=== PATIENT | male | born 1985 | race Two or more races ===

== ENCOUNTER → 2024-08-10 | Outpatient (CLI) | payer OTHER, SELFPAY ==
--- NOTE | 2024-08-10 09:24 | XR_ITS ---
Examination: Knee, left , 3 views Technique: Knee AP, lateral, oblique 3 views Date and time of exam: August 10, 2024 0946 hours INDICATIONS: Left knee pain beginning 3 months ago FINDINGS: Minimal narrowing medial joint space No fracture or dislocation Minimal osteoarthritis patellofemoral joint IMPRESSION: Minimal osteoarthritis
--- NOTE | 2024-08-10 09:24 | XR_ITS ---
Examination: Lumbar spine, 5 views Technique: Lumbar spine AP, lateral, coned lateral lower lumbar spine, bilateral obliques 5 views Exam date and time: August 10, 2024 0946 hours INDICATIONS: Lower back pain beginning 3 months ago. FINDINGS: Adequate alignment lumbar vertebral bodies No lumbar fracture Advanced disc during L5-S1 No spondylolisthesis IMPRESSION: Advanced degenerative disc disease L5-S1, progressed compared to the October 14, 2012 exam
--- NOTE | 2024-08-10 09:24 | XR_ITS ---
Examination: Shoulder,right, 3 views Technique: Shoulder AP internal rotation, AP external rotation, Y view shoulder, 3 views Exam date and time :August 10, 2024 0946 hours INDICATIONS: Right shoulder pain beginning 3 months ago. FINDINGS: Moderate narrowing glenohumeral joint No shoulder fracture or dislocation No calcific tendinitis IMPRESSION: Moderate narrowing glenohumeral joint
== END | disposition home or self-care (01) ==
LOC: CDIM 09:11
PROVIDERS: PCP Physician Assistant; Referring Provider Physician Assistant; Visit Provider Physician Assistant
DX: M17.12 Unilateral primary osteoarthritis, left knee (principal); M51.370 Other intervertebral disc degeneration, lumbosacral region with discogenic back pain only; M25.811 Other specified joint disorders, right shoulder
CPT/HCPCS: 72110; 73030; 73562

== ENCOUNTER 2024-11-27 20:00 | Inpatient (IN) | payer MEDICAID, SELFPAY ==
[2024-11-27 20:02] VITALS: BMI 30.8
[2024-11-27 20:07] VITALS: BP 112/77; PULSE 110; RESP 18; TEMP 36.4; O2SAT 96
--- NOTE | 2024-11-27 20:38 | EDNOTE_ITS ---
ED Weakness RME/HPI General Chief complaint: General Adult/Misc Complain Stated complaint: MUSCLE CRAMPING Time Seen by Provider: 11/27/24 20:16 Arrival date/time: 11/27/24 20:00 RME / HPI RME / HPI Narrative: Refer to [facility]. Related Data Allergies Allergy/AdvReac Type Severity Reaction Status Date / Time NKA* Allergy Uncoded 11/27/24 20:07 Review of Systems Review of Systems Systems Reviewed: All systems reviewed, normal except as documented ED Exam Narrative Physical exam: Refer to [facility]. Course Quality Measures none Orders Category Date Time Status Admit to Inpatient Status Routine Admission 11/28/24 01:25 Active Patient Condition Routine Admission 11/28/24 01:24 Ordered COVID-19 Screening Questionnaire NOW Care 11/28/24 01:21 Active Decision to Admit X1 Care 11/28/24 01:21 Completed EKG (ED ONLY) *Do not use* NOW Care 11/27/24 20:42 Completed Miscellaneous Nursing Order NOW Care 11/28/24 01:24 Active Notify provider NEEDED Care 11/28/24 01:24 Active Saline [Insert IV] NOW Care 11/27/24 20:37 Active Diet Regular Diet 11/28/24 Breakfast Active EKG (ED Only) Stat Exams 11/27/24 20:42 Draft Alcohol, Blood Medical Stat Lab 11/27/24 21:45 Completed Amylase Stat Lab 11/27/24 21:45 Completed BNP [B-Type Natriuretic Peptide] Stat Lab 11/27/24 21:45 Completed Basic Metabolic Panel Q4HR Lab 11/28/24 01:40 Completed Basic Metabolic Panel Q4HR Lab 11/29/24 01:30 Ordered Basic Metabolic Panel Q4HR Lab 11/30/24 01:30 Ordered Basic Metabolic Panel Q4HR Lab 12/01/24 01:30 Ordered Basic Metabolic Panel Q4HR Lab 12/02/24 01:30 Ordered Basic Metabolic Panel Q4HR Lab 12/03/24 01:30 Ordered Basic Metabolic Panel Q4HR Lab 12/04/24 01:30 Ordered Basic Metabolic Panel Q4HR Lab 12/05/24 01:30 Ordered Basic Metabolic Panel Q4HR Lab 12/06/24 01:30 Ordered Basic Metabolic Panel Q4HR Lab 12/07/24 01:30 Ordered Beta Hydroxybutyrate Stat Lab 11/27/24 21:45 Completed Bilirubin,Direct Stat Lab 11/27/24 21:45 Completed CBC AM DRAW Lab 11/28/24 05:00 Ordered CBC AM DRAW Lab 11/29/24 05:00 Ordered CBC AM DRAW Lab 11/30/24 05:00 Ordered CBC Stat Lab 11/27/24 21:45 Completed CK [Creatine Kinase] Q4HR Lab 11/28/24 01:40 Completed CK [Creatine Kinase] Q4HR Lab 11/29/24 01:30 Ordered CK [Creatine Kinase] Q4HR Lab 11/30/24 01:30 Ordered CK [Creatine Kinase] Q4HR Lab 12/01/24 01:30 Ordered CK [Creatine Kinase] Q4HR Lab 12/02/24 01:30 Ordered CK [Creatine Kinase] Q4HR Lab 12/03/24 01:30 Ordered CK [Creatine Kinase] Q4HR Lab 12/04/24 01:30 Ordered CK [Creatine Kinase] Q4HR Lab 12/05/24 01:30 Ordered CK [Creatine Kinase] Q4HR Lab 12/06/24 01:30 Ordered CK [Creatine Kinase] Q4HR Lab 12/07/24 01:30 Ordered CK [Creatine Kinase] Stat Lab 11/27/24 21:45 Completed CMP [Comprehensive Metabolic Panel] Stat Lab 11/27/24 21:45 Completed CRP [C-Reactive Protein] Stat Lab 11/27/24 21:45 Completed Drug Screen,Urine Stat Lab 11/28/24 01:53 Completed ESR [Sed Rate (ESR)] Stat Lab 11/27/24 21:45 Completed Free T4 (Free Thyroxine) Stat Lab 11/27/24 21:45 Completed LDH (Lactate Dehydrogenase) Stat Lab 11/27/24 21:45 Completed Lactate (Lactic Acid) Stat Lab 11/27/24 23:56 Completed Lipase Stat Lab 11/27/24 21:45 Completed Lipid Panel AM DRAW Lab 11/28/24 05:00 Ordered Magnesium AM DRAW Lab 11/28/24 05:00 Ordered Magnesium AM DRAW Lab 11/29/24 05:00 Ordered Magnesium AM DRAW Lab 11/30/24 05:00 Ordered Magnesium Stat Lab 11/27/24 21:45 Completed PT [Prothrombin Time with INR] Stat Lab 11/27/24 21:45 Completed PTT [Partial Thromboplastin Time] Stat Lab 11/27/24 21:45 Completed Phosphorous Q4H Lab 11/28/24 01:40 Completed Phosphorous Q4H Lab 11/28/24 05:00 Ordered Phosphorous Q4H Lab 11/28/24 09:30 Ordered Phosphorous Q4H Lab 11/28/24 13:30 Ordered Phosphorous Q4H Lab 11/28/24 17:30 Ordered Phosphorous Q4H Lab 11/28/24 21:30 Ordered Phosphorous Q4H Lab 11/29/24 01:30 Ordered Phosphorous Q4H Lab 11/29/24 05:30 Ordered Phosphorous Q4H Lab 11/29/24 09:30 Ordered Phosphorous Q4H Lab 11/29/24 13:30 Ordered Phosphorous Stat Lab 11/27/24 21:45 Completed Procalcitonin Stat Lab 11/27/24 21:45 Completed TSH [Thyroid Stimulating Hormone] Stat Lab 11/27/24 21:45 Completed Troponin I Stat Lab 11/27/24 21:45 Completed UA, C/S IF [Urinalysis, C/S if Indicated] Stat Lab 11/28/24 01:53 Completed Acetaminophen Tab [Tylenol Tab] Med 11/28/24 01:24 Discontinued 650 mg PO Q6H PRN Acetaminophen Tab [Tylenol Tab] Med 11/28/24 01:51 Discontinued 650 mg PO Q6H PRN Diazepam Inj [Valium Inj] Med 11/27/24 22:04 Discontinued 7.5 mg IVP X1 ONE HYDROcodone*/APAP 5/325 [[place] 5/325] Med 11/28/24 01:24 Discontinued 1 tab PO Q4HR PRN Heparin Inj Med 11/28/24 09:00 Active 5,000 unit SC Q12HR Ketorolac Inj [Toradol Inj] Med 11/27/24 20:38 Discontinued 30 mg IVP X1 ONE MethylPREDNISolone.* [SoluMEDROL Inj] Med 11/27/24 20:40 Discontinued 125 mg IVP X1 ONE Morphine Inj Med 11/27/24 20:39 Discontinued 6 mg IVP X1 ONE Ondansetron Inj [Zofran Inj] Med 11/28/24 01:24 Active 4 mg IVP Q6H PRN Ondansetron Inj [Zofran Inj] Med 11/27/24 20:40 Discontinued 4 mg IVP X1 ONE Ringers Lactated 1000 ml [Lactated Ringers] 1,000 ml Med 11/28/24 01:30 Active IV 200 mls/hr Sodium Chloride 0.9% 1000 ml [Ns] 1,000 ml Med 11/27/24 20:38 Discontinued IV 999 mls/hr Sodium Chloride 0.9% 1000 ml [Ns] 1,000 ml Med 11/27/24 20:39 Discontinued IV 999 mls/hr Sodium Chloride 0.9% 1000 ml [Ns] 1,000 ml Med 11/27/24 20:40 Discontinued IV 999 mls/hr Code Status Routine Oth 11/28/24 01:24 Ordered Vital Signs Vital signs: Vital Signs Temperature 97.6 F 11/27/24 20:07 Pulse Rate 110 H 11/27/24 20:07 Respiratory Rate 18 11/27/24 20:07 Blood Pressure 112/77 11/27/24 20:07 Pulse Oximetry (%) 96 11/27/24 20:07 Oxygen Delivery Method Room Air 11/27/24 20:07 Weakness MDM Narrative MDM Narrative:: Scribe Attestation: I, Radha Aden, am scribing for and in the presence of Dr. Haley. Provider Notation: Although this document has been carefully reviewed, there may still be some phonetic and other typographical errors. These errors are purely grammatical due to imperfections in the software program and should not be construed in any way to compromise the substance of the patient's medical care during this visit. This section includes all my notes and documentations, including HPI, PE, and ED course. 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 No other complaints. ROS: All negative except as documented in HPI. Physical Exam: General: Alert and oriented. Diffuse cramping noted. Eyes: Conjunctivae and lids clear. ENT: No nasal congestion. Neck: Supple. Heart: RRR. Lungs: No respiratory distress. Good air movement. No rhonchi, wheezing, rales. Abdomen: Soft and nontender. Legs: No clubbing, cyanosis, edema. Skin: Warm and dry. Neuro: Alert and oriented X 3. Cranial Nerves II-XII grossly intact. No peripheral motor deficits. I reviewed all diagnostic test results: My interpretation of the EKG is: Sinus rhythm (92 bpm) with nonspecific ST-T changes. Blood tests and urine tests remarkable for Cr 2.9 and CK 759. At this point, diagnoses include: BHAVIN (acute kidney injury), Rhabdomyolysis Treatment here included: 3 L IV fluid, Zofran 4 mg, Morphine 4 mg, SoluMedrol 125 mg, Toradol 30 mg, and Valium 7.5 mg. He felt much better. I discussed the case with our hospitalist. About the presentation and exam and diagnostics and treatments here. And need of further care in the hospital. Will accept the patient. Jose Haley MD Patient data External records reviewed:: [facility] previous records (Reviewed prior ED records from 08/07/21. Patient was seen for Closed left scapular fracture.) Clinical information provided by:: patient Social determinants that could affect healthcare access:: none Patient has the following chronic illnesses:: None reported. How is presenting disease/condition affected by chronic disease/condition?: no chronic disease Evaluation data The following diagnostics were reviewed and interpreted by me:: lab results and EKG tracing(s) (My interpretation of the EKG is: Sinus rhythm (92 bpm) with nonspecific ST-T changes. Jose Haley MD) Lab and/or radiology exams considered but not ordered:: None Interpretation Summary: I reviewed all diagnostic test results: My interpretation of the EKG is: Sinus rhythm (92 bpm) with nonspecific ST-T changes. Blood tests and urine tests remarkable for Cr 2.9 and CK 759. Medications / Prescriptions Medications or Prescriptions considered but not ordered:: None Medication administrations:: Medication Administration History Acetaminophen (Acetaminophen 325 Mg Tablet) 650 mg PO Q6H PRN; Protocol PRN Reason: Fever >100.4 or pain 1-10 Stop: 12/28/24 01:23 Hydrocodone Bitart/Acetaminophen (Hydrocodone/Apap 5/325 Tablet) 1 tab PO Q4HR PRN; Protocol PRN Reason: PAIN SCALE 4-10(Mod-Sev Stop: 12/03/24 01:23 Heparin Sodium (Porcine) (Heparin Sod Inj 5000 Unit/Ml Vial) 5,000 unit SC Q12HR JOSSELINE Stop: 12/12/24 08:59 Lactated Ringer's (Lactated Ringers) 1,000 mls @ 200 mls/hr IV .Q5H JOSSELINE Stop: 11/30/24 01:29 Last Admin: 11/28/24 01:47 Dose: 200 mls/hr Documented By: BD Ondansetron HCl (Ondansetron Inj 2 Mg/Ml Inj 2 Ml) 4 mg IVP Q6H PRN; Protocol PRN Reason: NAUSEA OR VOMITING Stop: 12/28/24 01:23 Discontinued Medications Acetaminophen (Acetaminophen 325 Mg Tablet) 650 mg PO Q6H PRN PRN Reason: Fever >100.4 or pain Stop: 12/28/24 01:23 Acetaminophen (Acetaminophen 325 Mg Tablet) 650 mg PO Q6H PRN PRN Reason: Fever >100.4 or pain 1-3 Stop: 12/28/24 01:23 Hydrocodone Bitart/Acetaminophen (Hydrocodone/Apap 5/325 Tablet) 1 tab PO Q4HR PRN PRN Reason: PAIN SCALE 4-10(Mod-Sev Stop: 12/03/24 01:23 Diazepam (Diazepam Inj 5 Mg/Ml Vial 2 Ml) 7.5 mg IVP X1 ONE Stop: 11/27/24 22:05 Last Admin: 11/27/24 22:24 Dose: 7.5 mg Documented By: EF Sodium Chloride (Ns) 1,000 mls @ 999 mls/hr IV .Q1H1M ONE Stop: 11/27/24 21:38 Last Infusion: 11/27/24 23:25 Dose: Infused Documented By: Admin: 11/27/24 21:29 Dose: 999 mls/hr Documented By: BD Sodium Chloride (Ns) 1,000 mls @ 999 mls/hr IV .Q1H1M ONE Stop: 11/27/24 21:39 Last Infusion: 11/27/24 23:25 Dose: Infused Documented By: Admin: 11/27/24 21:50 Dose: 999 mls/hr Documented By: EF Sodium Chloride (Ns) 1,000 mls @ 999 mls/hr IV .Q1H1M ONE Stop: 11/27/24 21:40 Last Infusion: 11/27/24 23:25 Dose: Infused Documented By: Admin: 11/27/24 21:30 Dose: 999 mls/hr Documented By: BD Ketorolac Tromethamine (Ketorolac Inj 30 Mg/Ml Vial) 30 mg IVP X1 ONE Stop: 11/27/24 20:39 Last Admin: 11/27/24 21:28 Dose: 30 mg Documented By: BD Methylprednisolone Sodium Succinate (Methylprednisolone Sod Succ 62.5 Mg/Ml 2ml Vial) 125 mg IVP X1 ONE Stop: 11/27/24 20:41 Last Admin: 11/27/24 21:28 Dose: 125 mg Documented By: BD Morphine Sulfate (Morphine Sulf Inj 10 Mg/Ml Vial) 6 mg IVP X1 ONE Stop: 11/27/24 20:40 Last Admin: 11/27/24 21:29 Dose: 6 mg Documented By: BD Ondansetron HCl (Ondansetron Inj 2 Mg/Ml Inj 2 Ml) 4 mg IVP X1 ONE; Protocol Stop: 11/27/24 20:41 Last Admin: 11/27/24 21:28 Dose: 4 mg Documented By: BD 3 L IV fluid, Zofran 4 mg, Morphine 4 mg, SoluMedrol 125 mg, Toradol 30 mg, and Valium 7.5 mg. Consultations Consultation(s) initiated? (list below): Yes Consultation #1 (Physician, Specialty, Details): I discussed the case with our hospitalist. About the presentation and exam and diagnostics and treatments here. And need of further care in the hospital. Will accept the patient. Diagnosis Weakness Differential Diagnosis: acute myocardial infarction, anemia, hypoglycemia, hypothyroidism, rhabdomyolysis, sepsis and dehydration Most likely diagnosis given after review of the tests above:: BHAVIN (acute kidney injury), Rhabdomyolysis Admission Indicated Admission indicated?: indicated Explain why admission is indicated or not indicated:: BHAVIN (acute kidney injury), Rhabdomyolysis Admission Request Was there a request for admission?: Yes Admission Attestation Admission request attestation: Discussed case with Hospitalist service regarding admission. Discussed patients ED course, exam findings, labs, and radiology results. The Hospitalist [agrees] to accept the patient for admission. Disposition Plan Disposition Plan: Admit Discharge Plan Plan Patient Disposition: Admit Acute Care w/in Hospital Problem List Clinical Impression: BHAVIN (acute kidney injury), Rhabdomyolysis
--- NOTE | 2024-11-27 20:42 | EKG_ITS ---
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
[2024-11-27] MEDS: ONDANSETRON INJ 2 MG/ML INJ 2 ML 4 MG IVP (21:28)
[2024-11-27] MEDS: MethylPREDNISolone SOD SUCC 62.5 MG/ML 2ML VIAL 125 MG IVP (21:28)
[2024-11-27] MEDS: KETOROLAC INJ 30 MG/ML VIAL IVP (21:28)
[2024-11-27] MEDS: MORPHINE SULF INJ 10 MG/ML VIAL 6 MG IVP (21:29)
[2024-11-27] MEDS: SODIUM CHLORIDE 0.9% 1000 ML 1,000 ML 999 ML IV ×3 (21:29→21:50)
[2024-11-27 21:58] LABS: Beta Hydroxybutyrate 0.6 mmol/L (<0.6); Sed Rate (ESR) 18 mm/hr (0-15)
[2024-11-27 21:59] LABS: Basophils # (Auto) 0.1 Thou/mm3 (0.0-0.2); Basophils % (Auto) 1 % (0-2.5); Eosinophils # (Auto) 0.0 Thou/mm3 (0.0-0.5); Eosinophils % (Auto) 0 % (0-10); Hematocrit 47.9 % (41.0-53.0); Hemoglobin 16.8 g/dL (13.5-16.0); Immature Granulocytes Auto 0.14 Thou/mm3 (0.00-0.00); Lymphocytes # (Auto) 1.4 Thou/mm3 (1.0-4.8); Lymphocytes % (Auto) 10 % (10-50); Mean Corpuscular HGB Conc 35.1 g/dl (31.0-37.0); Mean Corpuscular Hemoglobin 30.9 pg (25.0-35.0); Mean Corpuscular Volume 88 fL (80-100); Monocytes # (Auto) 0.6 Thou/mm3 (0.0-0.8); Monocytes % (Auto) 4 % (0-12); Neutrophils # (Auto) 12.4 Thou/mm3 (1.8-7.7); Neutrophils % (Auto) 85 % (37-80); Nucleated Red Blood Cell # 0.00 Thou/mm3 (0.00-0.00); Nucleated Red Blood Cell % 0 /100 WBC (0); Platelet Count 297 Thou/mm3 (140-440); RDW Standard Deviation 39.6 fL (35.1-43.9); Red Blood Count 5.43 Miln/mm3 (4.50-5.90); White Blood Count 14.6 Thou/mm3 (3.8-10.6)
[2024-11-27] MEDS: DIAZEPAM INJ 5 MG/ML VIAL 2 ML 7.5 MG IVP (22:24)
[2024-11-27 22:40] LABS: B-Type Natriuretic Peptide < 20 pg/mL (0-100)
[2024-11-27 23:48] LABS: INR 1.1 (0.9-1.3); Partial Thromboplastin Time 26.0 Seconds (22.0-36.0); Prothrombin Time 11.9 Seconds (9.0-12.2)
[2024-11-27 23:49] LABS: Alanine Aminotransferase 82 U/L (10-49); Albumin, Serum 5.1 gm/dL (3.5-5.0); Albumin/Globulin Ratio 1.5 (1.2-2.2); Alkaline Phosphatase 81 U/L (46-116); Aspartate Amino Transferase 71 U/L (0-34); BUN/Creatinine Ratio 5 Ratio (12-20); Bilirubin,Direct 0.2 mg/dL (0.0-0.3); Bilirubin,Total 0.8 mg/dL (0.3-1.2); Blood Urea Nitrogen 15 mg/dL (9-23); Calcium 10.7 mg/dL (8.3-10.6); Calcium (Corrected) 10.7 mg/dL (8.5-10.1); Carbon Dioxide 17.9 mMol/L (20.0-31.0); Creatine Kinase 759 U/L (34-171); Creatinine (Component) 2.9 mg/dL (0.6-1.3); Estimated Creatinine Clearance 44.0 mL/min (>60); Free T4 (Free Thyroxine) 1.57 ng/dL (0.89-1.76); Globulin 3.3 gm/dL (2.3-3.5); Glucose 131 mg/dL (74-106); Lipase 50 U/L (12-53); Magnesium 2.1 mg/dL (1.6-2.6); Procalcitonin 0.17 ng/ml (0.0-0.49); Thyroid Stimulating Hormone 7.76 uIU/mL (0.55-4.78); Total Protein 8.4 gm/dL (5.7-8.2); Troponin I < 0.020 ng/mL (0.0-0.045); eGFR 27 See Note
[2024-11-28] VITALS (7 sets, daily range): BP systolic 137–149; BP diastolic 72–89; PULSE 56–68; RESP 12–23; TEMP 35.6–36.3; O2SAT 95–98; BMI 30.7
[2024-11-28 00:10] LABS: Lactate (Lactic Acid) 1.3 mMol/L (0.4-2.0)
[2024-11-28 00:57] LABS: Amylase 63 U/L (30-118); Anion Gap 16 (7-16); C-Reactive Protein < 0.5 mg/dL (0.0-0.9); Chloride 101 mMol/L (98-107); LDH (Lactate Dehydrogenase) 282 U/L (120-246); Osmolality,Calculated 272 (275-295); Phosphorous 2.4 mg/dL (2.4-5.1); Potassium 4.6 mMol/L (3.4-5.1); Sodium 135 mMol/L (136-145)
[2024-11-28 01:06] LABS: Alcohol, Blood Medical < 3.0 mg/dL (0-10.0)
[2024-11-28] MEDS: RINGERS LACTATED 1000 ML 1,000 ML 200 ML IV ×3 (01:47→11:15)
--- NOTE | 2024-11-28 02:03 | PD.RESPRO ---
Documentation for date of: 11/28/24 Subjective Subjective Interval history: 39 y/o M with PMHx significant for rhabdomyolysis 1 week ago treated at [facility] presents to ED with chief complaint of diffuse muscle cramping. Patient is an otherwise healthy middle-aged man who is fairly active. 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 Patient noted significant swelling throughout the day. Approximately 5 hours into refereeing, patient began feeling some lightheadedness. Patient then experienced lower extremity cramping that spread to his ribs, shoulders, back and grew in intensity. Patient reports feeling feverish during the day. Patient denies chest pain, shortness of breath, nausea, vomiting, abdominal pain. Exam Vital Signs Temp Pulse Resp BP Pulse Ox O2 Del Method 97.6 F 110 H 18 112/77 96 Room Air 11/27/24 20:07 11/27/24 20:07 11/27/24 20:07 11/27/24 20:07 11/27/24 20:07 11/27/24 20:07 Objective Labs 11/27/24 21:45 11/27/24 21:45 Labs: Laboratory Results - last 24 hr 11/27/24 11/27/24 21:45 23:56 WBC 14.6 H RBC 5.43 Hgb 16.8 H Hct 47.9 MCV 88 MCH 30.9 MCHC 35.1 RDW Std Deviation 39.6 Plt Count 297 Neut % (Auto) 85 H Lymph % (Auto) 10 [place] % (Auto) 4 Eos % (Auto) 0 Baso % (Auto) 1 Neut # (Auto) 12.4 H Lymph # (Auto) 1.4 [place] # (Auto) 0.6 Eos # (Auto) 0.0 Baso # (Auto) 0.1 Immature Gran # (Auto) 0.14 H Absolute Nucleated RBC 0.00 Immature Gran % 1 H Nucleated RBC % 0 ESR 18 H PT 11.9 INR 1.1 APTT 26.0 Sodium 135 L Potassium 4.6 Chloride 101 Carbon Dioxide 17.9 L Anion Gap 16 BUN 15 Creatinine 2.9 H Estim Creat Clear Calc 44.0 L eGFR 27 L BUN/Creatinine Ratio 5 L Glucose 131 H Calculated Osmolality 272 L Lactic Acid 1.3 Calcium 10.7 H Corrected Calcium 10.7 H Phosphorus 2.4 Magnesium 2.1 Total Bilirubin 0.8 Direct Bilirubin 0.2 AST 71 H ALT 82 H Alkaline Phosphatase 81 Lactate Dehydrogenase 282 H Total Creatine Kinase 759 H Troponin I < 0.020 C-Reactive Prot, Quant < 0.5 B-Natriuretic Peptide < 20 Total Protein 8.4 H Albumin 5.1 H Globulin 3.3 Albumin/Globulin Ratio 1.5 Amylase 63 Lipase 50 Beta-Hydroxybutyrate/Acetoacetate 0.6 H Procalcitonin 0.17 TSH 7.76 H Free T4 1.57 Ethyl Alcohol < 3.0 Quality Measures Quality Measures none Assessment & Plan Assessment Current Active Medications: Generic Name Dose Route Start Last Admin Trade Name Freq PRN Reason Stop Dose Admin Acetaminophen 650 mg 11/28/24 01:51 Acetaminophen 325 Mg Tablet PO 12/28/24 01:23 Q6H PRN Fever >100.4 or pain 1-10 Hydrocodone Bitart/Acetaminophen 1 tab 11/28/24 01:24 Hydrocodone/Apap 5/325 Tablet PO 12/03/24 01:23 Q4HR PRN PAIN SCALE 4-10(Mod-Sev Heparin Sodium (Porcine) 5,000 unit 11/28/24 09:00 Heparin Sod Inj 5000 Unit/Ml Vial SC 12/12/24 08:59 Q12HR JOSSELINE Lactated Ringer's 1,000 mls @ 200 mls/hr 11/28/24 01:30 11/28/24 01:47 Lactated Ringers IV 11/30/24 01:29 200 mls/hr .Q5H JOSSELINE Administration Ondansetron HCl 4 mg 11/28/24 01:24 Ondansetron Inj 2 Mg/Ml Inj 2 Ml IVP 12/28/24 01:23 Q6H PRN NAUSEA OR VOMITING Protocol
[2024-11-28 02:06] LABS: Collection Type, Urine Clean Catch; Squamous Epithelial Cell,Urine 0 /hpf (0-5)
[2024-11-28 02:11] LABS: Bilirubin,Urine Negative (Negative); Blood,Urine Negative (Negative); Clarity,Urine Clear (Clear/Hazy); Color,Urine Lt-Yellow (Lt Yel-Yel); Culture Indicated,Urine Not Indicated; Glucose, Urine Negative (Negative); Hyaline Casts,Urine < 1 /hpf (0-1); Ketones,Urine Negative (Negative); Leukocyte Esterase,Urine Negative (Negative); Nitrite,Urine Negative (Negative); PH,Urine 6.0 (5.0-7.0); Protein,Urine Negative (Neg - Trace); RBC,Urine < 1 /hpf (0-3); Specific Gravity,Urine 1.010 (1.001-1.035); Urobilinogen,Urine Negative mg/dL (0.0-1.0); WBC,Urine < 1 /hpf (0-5)
--- NOTE | 2024-11-28 02:15 | ESHP_ITS ---
<Statement entered by Mik James MD - 11/29/24 10:04> I have discussed and was present for the essential components of the history, physical examination, diagnosis, and treatment plan with the resident. I agree with the patient's care as documented by the resident and amended herein by me. Mik James MD FACP. Documentation for date of: 11/28/24 HPI History of Present Illness Chief complaint: Diffuse muscle cramps History of present illness: 39 y/o M with PMHx significant for rhabdomyolysis 1 week ago treated at [facility] presents to ED with chief complaint of diffuse muscle cramping. Patient is an otherwise healthy middle-aged man who is fairly active. 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 Patient noted significant swelling throughout the day. Approximately 5 hours into refereeing, patient began feeling some lightheadedness. Patient then experienced lower extremity cramping that spread to his ribs, shoulders, back and grew in intensity. Patient reports feeling feverish during the day. Patient denies chest pain, shortness of breath, nausea, vomiting, abdominal pain. ED COURSE: Labs significant for: WBC 14.6, hemoglobin 16.8. Potassium 4.6, bicarb 17.9, BUN 15, creatinine 2.9, EGFR 27. Lactic acid 1.3, phosphorus 2.4, magnesium 2.1, CK7 5 9. Imaging significant for: EKG unremarkable. Patient received 2 bolus normal saline, methadone prednisolone 125, morphine and Valium in the ED. Of note, due to error with lab draw, patient did not have initial labs drawn until after receiving 2 L of fluid. PMH: Previous episode rhabdomyolysis PSH: Left calf fasciotomy due to compartment syndrome. SH: Denies tobacco or illicit drug use. Reports drinking 4?5 drinks twice per week. FH: Mother with A-fib, pulmonary embolism, hypertension. Father with hypertension, CVA Allergies:?NKDA Medications: Flexeril as needed Review of Systems Review of Systems Systems Reviewed: All systems reviewed, normal except as documented Past Medical History Past Medical History Comments PMH COMMENT: PMH: Previous episode rhabdomyolysis PSH: Left calf fasciotomy due to compartment syndrome. SH: Denies tobacco or illicit drug use. Reports drinking 4?5 drinks twice per week. FH: Mother with A-fib, pulmonary embolism, hypertension. Father with hypertension, CVA Allergies:?NKDA Medications: Flexeril as needed Exam Vital Signs Temp Pulse Resp BP Pulse Ox O2 Del Method 97.6 F 110 H 18 112/77 96 Room Air 11/27/24 20:07 11/27/24 20:07 11/27/24 20:07 11/27/24 20:07 11/27/24 20:07 11/27/24 20:07 Narrative Exam PE: Gen: Well-developed and well-nourished. HEENT: NCAT, PERRLA, EOMI, MMM, anicteric conjunctivae. CVS: normal S1 and S2. RRR. No M/R/G. Resp: CTA B/L. No rhonchi, rales, crackles or wheezing. Abd: soft, non-tender, non-distended. BS+ in all 4 quadrants. MSK: Good ROM in BUE & BLE. No edema or rash. Neuro: CN II-XII grossly intact. Strength 5/5 in BUE & BLE. Alert and oriented x3. Psych: appropriate mood and affect. Results: Labs 11/27/24 21:45 11/27/24 21:45 Labs: Short CBC 11/27/24 Range/Units 21:45 WBC 14.6 H (3.8-10.6) Thou/mm3 Hgb 16.8 H (13.5-16.0) g/dL Hct 47.9 (41.0-53.0) % Plt Count 297 (140-440) Thou/mm3 BMP 11/27/24 21:45 Sodium 135 L Potassium 4.6 Chloride 101 Carbon Dioxide 17.9 L BUN 15 Creatinine 2.9 H Glucose 131 H Calcium 10.7 H Cardiac Enzymes 11/27/24 Range/Units 21:45 Total Creatine Kinase 759 H (34-171) U/L Troponin I < 0.020 (0.0-0.045) ng/mL Liver Function 11/27/24 Range/Units 21:45 Total Bilirubin 0.8 (0.3-1.2) mg/dL Direct Bilirubin 0.2 (0.0-0.3) mg/dL AST 71 H (0-34) U/L ALT 82 H (10-49) U/L Alkaline Phosphatase 81 (46-116) U/L Albumin 5.1 H (3.5-5.0) gm/dL Urine 11/28/24 Range/Units 01:53 Urine Color Lt-Yellow (Lt Yel-Yel) Urine Clarity Clear (Clear/Hazy) Urine pH 6.0 (5.0-7.0) Ur Specific [place] 1.010 (1.001-1.035) Urine Protein Negative (Neg - Trace) Urine Glucose (UA) Negative (Negative) Quality Measures Quality Measures VTE prophylaxis Medications Home Medications and Allergies Allergies Allergy/AdvReac Type Severity Reaction Status Date / Time NKA* Allergy Uncoded 11/27/24 20:07 Visit Medications Acetaminophen (Acetaminophen 325 Mg Tablet) 650 mg PO Q6H PRN PRN Reason: Fever >100.4 or pain 1-10 Stop: 12/28/24 01:23 Hydrocodone Bitart/Acetaminophen (Hydrocodone/Apap 5/325 Tablet) 1 tab PO Q4HR PRN PRN Reason: PAIN SCALE 4-10(Mod-Sev Stop: 12/03/24 01:23 Heparin Sodium (Porcine) (Heparin Sod Inj 5000 Unit/Ml Vial) 5,000 unit SC Q12HR JOSSELINE Stop: 12/12/24 08:59 Lactated Ringer's (Lactated Ringers) 1,000 mls @ 200 mls/hr IV .Q5H JOSSELINE Stop: 11/30/24 01:29 Last Admin: 11/28/24 01:47 Dose: 200 mls/hr Ondansetron HCl (Ondansetron Inj 2 Mg/Ml Inj 2 Ml) 4 mg IVP Q6H PRN; Protocol PRN Reason: NAUSEA OR VOMITING Stop: 12/28/24 01:23 Discontinued Medications Acetaminophen (Acetaminophen 325 Mg Tablet) 650 mg PO Q6H PRN PRN Reason: Fever >100.4 or pain Stop: 12/28/24 01:23 Diazepam (Diazepam Inj 5 Mg/Ml Vial 2 Ml) 7.5 mg IVP X1 ONE Stop: 11/27/24 22:05 Last Admin: 11/27/24 22:24 Dose: 7.5 mg Sodium Chloride (Ns) 1,000 mls @ 999 mls/hr IV .Q1H1M ONE Stop: 11/27/24 21:38 Last Infusion: 11/27/24 23:25 Dose: Infused Sodium Chloride (Ns) 1,000 mls @ 999 mls/hr IV .Q1H1M ONE Stop: 11/27/24 21:39 Last Infusion: 11/27/24 23:25 Dose: Infused Sodium Chloride (Ns) 1,000 mls @ 999 mls/hr IV .Q1H1M ONE Stop: 11/27/24 21:40 Last Infusion: 11/27/24 23:25 Dose: Infused Ketorolac Tromethamine (Ketorolac Inj 30 Mg/Ml Vial) 30 mg IVP X1 ONE Stop: 11/27/24 20:39 Last Admin: 11/27/24 21:28 Dose: 30 mg Methylprednisolone Sodium Succinate (Methylprednisolone Sod Succ 62.5 Mg/Ml 2ml Vial) 125 mg IVP X1 ONE Stop: 11/27/24 20:41 Last Admin: 11/27/24 21:28 Dose: 125 mg Morphine Sulfate (Morphine Sulf Inj 10 Mg/Ml Vial) 6 mg IVP X1 ONE Stop: 11/27/24 20:40 Last Admin: 11/27/24 21:29 Dose: 6 mg Ondansetron HCl (Ondansetron Inj 2 Mg/Ml Inj 2 Ml) 4 mg IVP X1 ONE; Protocol Stop: 11/27/24 20:41 Last Admin: 11/27/24 21:28 Dose: 4 mg Assessment & Plan Plan 39 y/o M with PMHx significant for rhabdomyolysis 1 week ago treated at [facility] presents to ED with chief complaint of diffuse muscle cramping. 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 Of note patient was treated rhabdomyolysis 1 week ago at [facility]. On presentation patient had CK7 5 9, potassium 4.6, lactic acid 1.3, phosphorus 2.4. Patient had BHAVIN BUN 15, creatinine 2.9, EGFR 27. Patient received 3 L bolus in the ED. Pain largely resolved by time of exam. - IVF: LR at 200 mL/h x 2 days - BMP, CK, phosphorus every 4 hours - Strict I's and O's - Avoid nephrotoxins - Renally dose medications DVT prophylaxis: Heparin GI prophylaxis: None Diet: Regular Lines: Peripheral IV Code status: Full code Plan of care discussed with attending Dr. James. Maxime Almanza MD PGY-2
[2024-11-28 02:17] LABS: Anion Gap 11 (7-16); BUN/Creatinine Ratio 11 Ratio (12-20); Blood Urea Nitrogen 20 mg/dL (9-23); Calcium 9.7 mg/dL (8.3-10.6); Carbon Dioxide 23.9 mMol/L (20.0-31.0); Chloride 99 mMol/L (98-107); Creatine Kinase 692 U/L (34-171); Creatinine (Component) 1.8 mg/dL (0.6-1.3); Estimated Creatinine Clearance 70.9 mL/min (>60); Glucose 147 mg/dL (74-106); Osmolality,Calculated 273 (275-295); Phosphorous 3.1 mg/dL (2.4-5.1); Potassium 4.5 mMol/L (3.4-5.1); Sodium 134 mMol/L (136-145); eGFR 48 See Note
[2024-11-28 02:19] LABS: Amphetamine/Methamp Scrn,U Negative (Negative); Barbiturate Screen,Urine Negative (Negative); Benzodiazepines Screen,Urine Positive (Negative); Benzoylecgonine Screen, Ur Negative (Negative); Fentanyl Screen,Urine Negative (Negative); Opiate Screen,Urine Positive (Negative); THC Screen,Urine Negative (Negative)
--- NOTE | 2024-11-28 02:28 | PC.NURSE ---
REPORT CALLED TO LOBO GOTTI AT THIS TIME.
[2024-11-28 06:10] LABS: Basophils # (Auto) 0.0 Thou/mm3 (0.0-0.2); Basophils % (Auto) 0 % (0-2.5); Eosinophils # (Auto) 0.0 Thou/mm3 (0.0-0.5); Eosinophils % (Auto) 0 % (0-10); Hematocrit 43.8 % (41.0-53.0); Hemoglobin 15.0 g/dL (13.5-16.0); Immature Granulocytes Auto 0.05 Thou/mm3 (0.00-0.00); Lymphocytes # (Auto) 1.0 Thou/mm3 (1.0-4.8); Lymphocytes % (Auto) 11 % (10-50); Mean Corpuscular HGB Conc 34.2 g/dl (31.0-37.0); Mean Corpuscular Hemoglobin 30.9 pg (25.0-35.0); Mean Corpuscular Volume 90 fL (80-100); Monocytes # (Auto) 0.0 Thou/mm3 (0.0-0.8); Monocytes % (Auto) 0 % (0-12); Neutrophils # (Auto) 7.8 Thou/mm3 (1.8-7.7); Neutrophils % (Auto) 88 % (37-80); Nucleated Red Blood Cell # 0.00 Thou/mm3 (0.00-0.00); Nucleated Red Blood Cell % 0 /100 WBC (0); Platelet Count 249 Thou/mm3 (140-440); RDW Standard Deviation 40.5 fL (35.1-43.9); Red Blood Count 4.86 Miln/mm3 (4.50-5.90); White Blood Count 8.9 Thou/mm3 (3.8-10.6)
[2024-11-28 07:00] LABS: Cardiac Risk Estimate 3.2 RATIO (4.0-6.7); Cholesterol 169 mg/dL (132-200); HDL Cholesterol 53 mg/dL (40-60); LDL Cholesterol,Calculated 110 mg/dL (0-130); Magnesium 1.8 mg/dL (1.6-2.6); Phosphorous 3.0 mg/dL (2.4-5.1); Triglycerides 28 mg/dL (30-150)
[2024-11-28 09:56] LABS: Phosphorous 3.3 mg/dL (2.4-5.1)
[2024-11-28] MEDS: ACETAMINOPHEN 325 MG TABLET 650 MG PO (10:10)
[2024-11-28] MEDS: HEPARIN SOD INJ 5000 UNIT/ML VIAL SC (10:13)
--- NOTE | 2024-11-28 10:30 | XR_ITS ---
Examination: Retroperitoneal ultrasound, complete Technique: Multiple high resolution grayscale images of the retroperitoneum obtained, including kidneys and bladder. Exam date and time:November 28, 2024 1532 hrs. Indications: Acute renal insufficiency on laboratory examination today Findings: Right kidney 11.9 cm cortex 1.9 cm Left kidney 11.8 cm cortex 2.3 cm No hydronephrosis No bladder mass or bladder calculi Bladder prevoid volume 264 cc No prostatomegaly, volume 25 cc no prostate nodules Impression: No hydronephrosis or renal calculi
[2024-11-28 14:51] LABS: Albumin, Serum 4.1 gm/dL (3.5-5.0); Anion Gap 9 (7-16); BUN/Creatinine Ratio 18 Ratio (12-20); Blood Urea Nitrogen 21 mg/dL (9-23); Calcium 9.7 mg/dL (8.3-10.6); Calcium (Corrected) 9.7 mg/dL (8.5-10.1); Carbon Dioxide 22.7 mMol/L (20.0-31.0); Chloride 104 mMol/L (98-107); Creatinine (Component) 1.2 mg/dL (0.6-1.3); Estimated Creatinine Clearance 106.4 mL/min (>60); Glucose 136 mg/dL (74-106); Osmolality,Calculated 276 (275-295); Phosphorous 3.1 mg/dL (2.4-5.1); Potassium 4.6 mMol/L (3.4-5.1); Sodium 136 mMol/L (136-145); eGFR > 60 See Note
--- NOTE | 2024-11-28 14:56 | PD.ADDPROG ---
Addendum Progress Note Addendum Date of report being addended: 11/28/24 Narrative: I Javi Dela Cruz MD reviewed the note and agree with the resident's assessment & plan with modifications/additions/exceptions as below. I have personally reviewed labs, imaging, home meds/prior records, examined the patient, formulated and discussed management plan with the IM team. 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 On presentation patient noted to have elevated creatinine and electrolyte derangements. CK noted to be elevated at 760. Patient had significant improvement in creatinine and CK following initial IV fluid resuscitation. Troponin, BNP, CRP remain unremarkable. Will obtain ultrasound of the kidneys and continue IV fluid resuscitation. If no significant abnormality on US KUB patient can be discharged home. Recommended patient to keep hydrated and in cases of extensive sweating and physical activity ensure to take additional electrolytes as appropriate. Ordered renal panel with magnesium level in 3 days with a follow-up with PCP.
--- NOTE | 2024-11-28 15:48 | ESDS_ITS ---
<Statement entered by Javi Dela Cruz MD - 11/29/24 12:49> I Javi Dela Cruz MD reviewed the note and agree with the resident's assessment & plan with modifications/additions/exceptions as below. I have personally reviewed labs, imaging, home meds/prior records, examined the patient, formulated and discussed management plan with the IM team. Planned Discharge Date 11/28/24 DS: Providers Provider Date of admission: 11/28/24 02:06 Primary care physician: Physician No Primary/Family Admitting Provider: Mik James MD Attending Provider on Admission: Mik James MD Attending Provider on DC: Javi Dela Cruz MD Discharging Provider: Javi Dela Cruz MD DS: Diagnosis Problem List Completed Was Problem List Reviewed/Reconciled?: Yes Hospital Course Hospital Course Hospital course: Summary: Gio Kaur is a 39M with no pmhx presented to [facility] ED on 11/27 for muscle cramps admitted for mild rhabdomyolysis and BHAVIN. 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 On admission patient was treated with significant IV fluids, with downtrending of CK and improvement in creatinine. On discharge, patient was is hemodynamically stable, labs and vitals reviewed to be stable and patient is feeling ready to go home. Discharge Recommendations: - Please take all medications as prescribed - Please hydrate very well prior to activities - Please follow up with your PCP within one week of discharge to repeat renal panel and HbA1c - If your symptoms worsen, please seek immediate medical attention and return to your nearest emergency room. - If you do not have a PCP, you may follow up at the [facility] at [address] [place] [address] [address] [address], Hospital Diagnoses: #Mild rhabdomyolysis, resolved #BHAVIN, resolved Gayle Bhatia, DO Internal Medicine, PGY-1 Status at Discharge Cognitive/behavioral status at discharge: Stable Functional status at discharge: independent ambulation Overall status at discharge: patient is back to baseline Time Spent with Patient Time attestation: Total time spent providing and/or coordinating discharge services: Time spent: Greater than 30 minutes Exam Vital Signs Temp Pulse Resp BP Pulse Ox O2 Del Method 97.1 F 64 19 137/72 H 96 Room Air 11/28/24 12:00 11/28/24 12:00 11/28/24 12:00 11/28/24 12:00 11/28/24 12:00 11/28/24 12:00 Narrative Exam GENERAL: AOx3, no acute distress HEENT: NC/AT, mucous membranes moist, bilateral sclera anicteric CARDIOVASCULAR: regular rate and rhythm, S1/S2 present, no murmurs appreciated PULMONARY: clear to auscultation bilaterally, no rales/rhonchi/wheezes ABDOMINAL: soft, non-tender, non-distended, no rebound/guarding, bowel sounds present EXTREMITIES: no peripheral edema SKIN: warm and dry, intact, no rashes NEURO: CN II-XII grossly intact, no focal deficits, alert, following commands Discharge Plan Problem List Was Problem List Reviewed/Reconciled?: Yes Plan Patient Disposition: HOME (Self Care) Care Plan Goals: -Follow up with PCP within 1 week of discharge, if you do not have a primary care physician you can come see us at the [facility] by calling [phone] -Please repeat renal panel within 1 week and follow up with your primary care to order renal ultrasound and A1c. -Please be advised to stay well hydrated when your out playing supports in severe heat. -Return to the ED or call EMS if symptoms return and/or worsen Prescriptions/Referrals Prescriptions/Med Rec: No Action cyclobenzaprine 5 mg tablet 5 mg PO BID PRN (Reason: muscle spasm) Patient Comments: TAKE 1 TABLET BY MOUTH TWICE A DAY NEEDED Referrals: No Primary/Family,Physician [Primary Care Provider] - Patient/Caregiver Discharge Instructions Discharge Activity: activity as tolerated Print Language: Venezuelan Stand Alone Forms: [employer] Award Info., Patient Portal Info Letter Quality Discharge Quality Measures VTE prophylaxis
== END 2024-11-28 17:10 | disposition home or self-care (01) | DRG 351 ==
LOC: SERX 11-28 02:02 → SERHOLD 11-28 02:11 → S2NX 11-28 03:23
PROVIDERS: Admitting Provider Internal Medicine; Emergency Provider Emergency Medicine; Visit Provider Internal Medicine
DX: M62.82 Rhabdomyolysis (principal); N17.9 Acute kidney failure, unspecified
CPT/HCPCS: 36415; 76770; 80048; 80053; 80061; 80069; 80307; 80320; 81001; 82010; 82150; 82248; 82550; 83605; 83615; 83690; 83735; 83880; 84100; 84145; 84439; 84443; 84484; 85025; 85610; 85652; 85730; 86140; 87081; 93005; 96361; 96374; 96375; 99284; J1644; J1885; J2270; J2405; J2919; J3360; J7030; J7120; A9270; G0480

== ENCOUNTER → 2025-02-24 | Outpatient (BNVA) | payer MEDICAID, SELFPAY | END | disposition home or self-care (01) | PROVIDERS: PCP Nurse Practitioner Family; Referring Provider Nurse Practitioner Family; Visit Provider Urology | DX: Z30.2 Encounter for sterilization (principal); E66.9 Obesity, unspecified; Z68.33 Body mass index [BMI] 33.0-33.9, adult | CPT/HCPCS: 81003; 99212; G0463 ==

== ENCOUNTER → 2025-03-29 | Outpatient (CLI) | payer MEDICAID, SELFPAY ==
[2025-03-29 09:42] VITALS: BMI 32.5
[2025-03-29 10:47] LABS: Anion Gap 6 (7-16); BUN/Creatinine Ratio 16 Ratio (12-20); Blood Urea Nitrogen 14 mg/dL (9-23); Calcium 9.3 mg/dL (8.3-10.6); Carbon Dioxide 31.1 mMol/L (20.0-31.0); Chloride 106 mMol/L (98-107); Creatinine (Component) 0.9 mg/dL (0.6-1.3); Estimated Creatinine Clearance 145.5 mL/min (>60); Glucose 82 mg/dL (74-106); Osmolality,Calculated 284 (275-295); Potassium 4.2 mMol/L (3.4-5.1); Sodium 143 mMol/L (136-145); eGFR > 60 See Note
--- NOTE | 2025-03-29 15:25 | SUR.PREOP ---
Message left for pt to come in tomorrow at 0830.
== END | disposition home or self-care (01) ==
LOC: SLAB 03-31 07:47
PROVIDERS: Anesthesiology; PCP Nurse Practitioner Family; Referring Provider Urology; Visit Provider Urology
DX: Z30.2 Encounter for sterilization (principal)
CPT/HCPCS: 36415; 80048